=== PATIENT | female | born 1990 | race Native Hawaiian/Other Pacific Islander ===

== ENCOUNTER 2017-08-22 15:23 | Outpatient (CLI) | payer OTHER | END 2017-08-22 15:35 | disposition short-term general hospital (02) | LOC: AMB 15:23 | DX: F19.10 Other psychoactive substance abuse, uncomplicated (principal) | CPT/HCPCS: A0425; A0427 ==

== ENCOUNTER 2017-08-22 15:40 | Emergency (ER) | payer OTHER ==
[~2017-08-22] VITALS: Ht 175.3 cm; Wt 65.3 kg
[2017-08-22 16:13] LABS: PLATELET COUNT 348 K/uL (152-353)
[2017-08-22 17:12] LABS: POTASSIUM 2.7 mmol/L (3.6-5.2)
[2017-08-22 22:06] VITALS: BP 113/81; TEMP 98
== END 2017-08-22 22:15 | disposition home or self-care (01) ==
LOC: ED 15:40
DX: F19.10 Other psychoactive substance abuse, uncomplicated (principal)
CPT/HCPCS: 80048; 80307; 81000; 84443; 85027; 96360; 96361; 96374; 96376; 99284; J1200

== ENCOUNTER 2017-08-24 13:44 | Outpatient (CLI) | payer OTHER | END 2017-08-24 13:50 | disposition short-term general hospital (02) | LOC: AMB 13:44 | DX: G40.89 Other seizures (principal) | CPT/HCPCS: A0425; A0427 ==

== ENCOUNTER 2017-08-24 13:52 | Emergency (ER) | payer OTHER ==
[~2017-08-24] VITALS: Ht 175.3 cm; Wt 65.3 kg
[2017-08-24 14:26] LABS: PLATELET COUNT 288 K/uL (152-353)
[2017-08-24 14:33] LABS: POTASSIUM 4.2 mmol/L (3.6-5.2)
[2017-08-24 15:19] VITALS: BP 141/76; TEMP 98.3
== END 2017-08-24 15:22 | disposition home or self-care (01) ==
LOC: ED 13:52
DX: R56.9 Unspecified convulsions (principal)
CPT/HCPCS: 80053; 80307; 81000; 85027; 99283

== ENCOUNTER 2017-10-12 20:26 | Emergency (ER) | payer OTHER ==
[~2017-10-12] VITALS: Ht 165.1 cm; Wt 65.3 kg
[2017-10-12 21:24] LABS: PLATELET COUNT 690 K/uL (152-353)
[2017-10-12 21:27] LABS: POTASSIUM 4.3 mmol/L (3.6-5.2); SODIUM 137 mmol/L (136-145)
[2017-10-13 10:00] VITALS: TEMP 97.7
[2017-10-13 10:28] VITALS: BP 115/81
== END 2017-10-13 11:25 | disposition short-term general hospital (02) ==
LOC: ED 20:26
PROVIDERS: Specialist
PROC: 0BH17EZ Insertion of Endotracheal Airway into Trachea, Via Natural or Artificial Opening (ICD-10-PCS; principal; 2017-10-12)
PROC: 5A1935Z Respiratory Ventilation, Less than 24 Consecutive Hours (ICD-10-PCS; 2017-10-12)
PROC: 0T9B70Z Drainage of Bladder with Drainage Device, Via Natural or Artificial Opening (ICD-10-PCS; 2017-10-12)
DX: T43.621A Poisoning by amphetamines, accidental (unintentional), initial encounter (principal); R00.0 Tachycardia, unspecified; I45.81 Long QT syndrome
CPT/HCPCS: 36415; 80053; 80185; 80307; 81000; 82550; 82553; 83605; 83735; 84100; 84484; 84702; 85027; 93005; 96365; 96366; 96372; 96375; 96376; 99285; J0330; J1165; J2060; J2250; J3490

== ENCOUNTER → 2017-10-12 | Outpatient (CLI) | payer OTHER | END | disposition short-term general hospital (02) | LOC: AMB 20:02 | DX: T43.621A Poisoning by amphetamines, accidental (unintentional), initial encounter (principal); Y92.098 Other place in other non-institutional residence as the place of occurrence of the external cause | CPT/HCPCS: A0425; A0427 ==

== ENCOUNTER 2017-10-13 11:46 | Outpatient (CLI) | payer OTHER | END 2017-10-13 12:28 | disposition short-term general hospital (02) | LOC: AMB 11:46 | DX: T43.621A Poisoning by amphetamines, accidental (unintentional), initial encounter (principal); R00.0 Tachycardia, unspecified; I45.81 Long QT syndrome | CPT/HCPCS: A0425; A0427 ==

== ENCOUNTER 2018-08-27 18:38 | Outpatient (CLI) | payer OTHER | END 2018-08-27 18:49 | disposition short-term general hospital (02) | LOC: AMB 18:38 | DX: T43.621A Poisoning by amphetamines, accidental (unintentional), initial encounter (principal); Y92.018 Other place in single-family (private) house as the place of occurrence of the external cause | CPT/HCPCS: A0425; A0427 ==

== ENCOUNTER 2018-08-27 18:53 | Inpatient (IN) | payer OTHER ==
[~2018-08-27] VITALS: Ht 167.6 cm; Wt 63.5 kg
[2018-08-27 19:17] VITALS: BP 120/73; TEMP 100.8
[2018-08-27 19:55] LABS: PLATELET COUNT 421 K/uL (152-353)
[2018-08-27 20:00] LABS: SODIUM 144 mmol/L (136-145)
[2018-08-27 20:20] VITALS: BP 106/76
[2018-08-27 21:34] VITALS: BP 87/47
[2018-08-27 21:45] VITALS: BP 87/48
--- NOTE | 2018-08-27 22:10 | NUR ---
PT BROUGHT TO ICU FROM ER BY KIERSTEN MAHONEY RN AND REMI WHITLEY RN, PT RESTING QUIETLY WITH EYES CLOSED, IN POSITION, LEFT SIDE, MOVED PT OVER TO ICU BED, HOOKED UP TO MONITORS, PT BEGAN BUCKING HER BODY, AND SLINGING HER ARMS, SHE QUIETENED BACK DOWN, NO C/O OF CHEST PAIN, PT OPENED EYES WHEN NAME WAS CALLED, PUPILS 6-7MM, DOES NOT VERBALLY RESPOND, LUNG SOUNDS CLEAR, RESPIRATIONS EVEN AND NON-LABORED, NO SKIN PROBLEMS FOUND, PT WEARING T-SHIRT AND SHORTS, DENTAL CARIES (BAD BREATH) NOTED. WILL CONTINUE TO MONITOR
[2018-08-27 22:47] VITALS: BP 104/72; TEMP 97.7; Ht 167.6 cm; Wt 63.5 kg
[2018-08-27 23:00] VITALS: BP 114/74
[2018-08-27 23:57] LABS: PARTIAL THROMBOPLASTIN TIME 25.1 SECONDS (24.5-33.6)
[2018-08-28] VITALS (20 sets, daily range): BP systolic 85–108; BP diastolic 42–73; TEMP 98–98.4
--- NOTE | 2018-08-28 00:15 | NUR ---
PT SAT UP IN BED, VERY FIDGETY, UNABLE TO REST, GAVE ATIVAN 2MG IV PUSH, WILL CONTINUE TO MONITOR
--- NOTE | 2018-08-28 00:30 | NUR ---
PT RESTING QUIETLY WITH EYES CLOSED, NAD NOTED, WILL CONTINUE TO MONITOR
--- NOTE | 2018-08-28 03:20 | NUR ---
PT STARTING TO WAKE UP, ASKED FOR SOMETHING TO DRINK, EXPLAINED TO PATIENT THAT SHE COULDN'T HAVE ANYTHING BY MOUTH UNTIL SHE WOKE UP BETTER, PT TALKING AND ASKING QUESTIONS, PURCHASING ASSISTANT NOTICED PT'S BEDDING WET, IV TO LEFT FOREARM LEAKING AT THE HUB, MORNING LABS TO BE DRAWN, NEW IV SITE STARTED TO RT HAND X 2 STICKS, 22G, IVF INFUSING TO RT HAND WITHOUT DIFFICULTY, SINCE PT WAS SO COOPERATIVE, PURCHASING ASSISTANT CALLED RESPIRATORY TO DO EKG AND RADIOLOGY TO DO CXR. ALL WERE SUCCESSFUL, PT COOPERATED WELL, PT ALSO DRANK 240ML OF LIOR KEILA WITHOUT DIFFICULTY. @0400 NOW PATIENT IS RESTING QUIETLY WITH EYES CLOSED, NAD NOTED.
--- NOTE | 2018-08-28 06:06 | NUR ---
PT RESTING QUIETLY WITH EYES CLOSED, NAD NOTED, AWAKENS TO VERBAL OR TACTILE STIMULI, VERY RESTLESS, EASILY GOES BACK TO SLEEP, PT IS VERY ANXIOUS WHEN AWAKE, UNABLE TO BE STILL
--- NOTE | 2018-08-28 07:00 | NUR ---
REPORT RECEIVED FROM PHILLIP CASTILLO. CARE ASSUMED.
--- NOTE | 2018-08-28 07:15 | NUR ---
PT RESTING WITH EYES CLOSED. RR EVEN & UNLABORED. NAD NOTED. SHIFT ASSESSMENT COMPLETE. IV HEPLOCK TO LAC & RIGHT HAND PATENT, NO S/S OF INFILTRATION NOTED. NS INFUSING TO RIGHT HAND W/O DIFFICULTY. SR'S UP X2. BED LOW. WILL CONTINUE TO MONITOR.
--- NOTE | 2018-08-28 07:55 | NUR ---
DR. MACIAS IN TO ASSESS PT., DIET ORDER RECEIVED.
--- NOTE | 2018-08-28 08:00 | NUR ---
DIETARY CALL FOR A BREAKFAST TRAY FOR PT.
--- NOTE | 2018-08-28 08:08 | NUR ---
PT'S BPM IS 85/42. DR. MACIAS CALLED. NEW ORDERS RECEIVED.
--- NOTE | 2018-08-28 08:09 | NUR ---
NS RATE INCREASED TO WIDE OPEN (999 ML/HR) AT THIS TIME. WILL MONITOR BP.
--- NOTE | 2018-08-28 08:23 | NUR ---
PT AWAKE & SITTING UP AT THIS TIME EATING A CLEAR LIQUID BREAKFAST. NAD NOTED. WILL MONITOR.
--- NOTE | 2018-08-28 08:45 | NUR ---
PT IS ON HER PERIOD. PT HAS BLOOD ALL OVER SHEETS. PT TO BEDSIDE COMMODE TO VOID & BATH. LINENS CHANGED. MOUTH CARE PROVIDED. PT TOLERATED WELL. WILL CONTINUE TO MONITOR.
--- NOTE | 2018-08-28 09:19 | NUR ---
PT SITTING UP EATING JELLO. WILL CONTINUE TO MONITOR.
--- NOTE | 2018-08-28 10:05 | NUR ---
PT RESTING WITH EYES CLOSED. RR EVEN & UNLABORED. NAD NOTED. WILL CONTINUE TO MONITOR. BP IS 93/53. WILL CONTINUE NS @ 125 ML/HR. NS BOLUS OF 1500 ML'S COMPLETE.
--- NOTE | 2018-08-28 11:05 | NUR ---
PT SLEEPING AT THIS TIME. RR EVEN & UNLABORED. NAD NOTED. PT AWAKENS WITH CALLING HER NAME & A TOUCH. WILL CONTINUE TO MONITOR.
--- NOTE | 2018-08-28 11:55 | NUR ---
BLOOD DRAWN FOR LABS X 2 ATTEMPTS. PT AROUSES FOR BLOOD DRAW BUT EASILY FALLS BACK TO SLEEP. WILL CONTINUE TO MONITOR.
--- NOTE | 2018-08-28 12:33 | NUR ---
PT SITTING UP EATING LUNCH. NAD NOTED.
[2018-08-28 12:40] LABS: POTASSIUM 3.8 mmol/L (3.6-5.2); SODIUM 138 mmol/L (136-145)
[2018-08-28 12:41] LABS: PLATELET COUNT 254 K/uL (152-353)
--- NOTE | 2018-08-28 12:54 | NUR ---
LAB RESULTS ARE BACK & ON THE CHART. DR. MACIAS CALLED IN THE ER TO REVIEW REULTS.
--- NOTE | 2018-08-28 12:55 | NUR ---
PT ATE ALL HER LUNCH & TOLERATED WELL. WILL CONTINUE TO MONITOR.
--- NOTE | 2018-08-28 13:30 | NUR ---
PT RESTING WITH EYES CLOSED. NAD NOTED. WILL CONTINUE TO MONITOR.
--- NOTE | 2018-08-28 14:15 | NUR ---
PT HAS VISITORS X 2 AT BEDSIDE.
--- NOTE | 2018-08-28 14:38 | NUR ---
PT HAS ANOTHER VISITOR AT BEDSIDE.
--- NOTE | 2018-08-28 15:08 | NUR ---
PT SITTING UP VISITING WITH SO. RR EVEN & UNLABORED. NAD NOTED. PT EATING A SNACK. WILL CONTINUE TO MONITOR.
--- NOTE | 2018-08-28 15:55 | NUR ---
DR. MACIAS IN TO SEE PT. NEW STAT ORDER RECEIVED.
--- NOTE | 2018-08-28 16:10 | NUR ---
BLOOD DRAWN FOR STAT [facility] & SENT TO LAB
--- NOTE | 2018-08-28 16:14 | NUR ---
PT SITTING UP AT THIS TIME EATING PUDDING. NAD NOTED. NO COMPLAINTS AT PRESENT.
--- NOTE | 2018-08-28 16:38 | NUR ---
CALLED [facility] RESULTS TO DR. MACIAS.
--- NOTE | 2018-08-28 16:58 | NUR ---
DR. MACIAS AT BEDSIDE TO ASSESS PT & REVIEW LABS.
--- NOTE | 2018-08-28 17:05 | NUR ---
CALLED PT'S RIDE TO COME PICK HER UP.
--- NOTE | 2018-08-28 17:45 | NUR ---
PT'S RIDE IS HERE. DISCONTINUED IV'S TO RIGHT HAND & LFA WITH CATH TIPS INTACT. DRESSINGS APPLIED.
--- NOTE | 2018-08-28 18:00 | NUR ---
PT DISCHARGED HOME WITH FAMILY. RR EVEN & UNLABORED. NAD NOTED. PT A&O X3. PT TO HOSPITAL EXIT WITH STAFF. DISCHARGE INSTRUCTION GIVEN TO PT WITH PT VERBALIZING UNDERSTANDING. PT INSTRUCTED TO FOLLOW UP WITH CARDIOLOGY WITHIN THE WEEK (DR. EDMONDS OR WHAT EVER VIDEO GAME MAKER PT CHOOSES. PT VERBALIZES UNDERSTANDING.
== END 2018-08-28 17:55 | disposition home or self-care (01) | DRG 918 ==
LOC: ED 18:53 → ICU 21:00
PROVIDERS: Emergency Medicine; ADMIT Internal Medicine
PROC: 0T9B70Z Drainage of Bladder with Drainage Device, Via Natural or Artificial Opening (ICD-10-PCS; principal; 2018-08-27)
DX: T43.621A Poisoning by amphetamines, accidental (unintentional), initial encounter (principal); Y92.89 Other specified places as the place of occurrence of the external cause; R07.89 Other chest pain; I25.2 Old myocardial infarction
CPT/HCPCS: 51702; 80053; 80307; 81000; 81025; 82550; 82553; 83735; 84484; 85027; 85610; 85730; 93005; 96365; 96375; 96376; 99285; J1630; J1650; J2060

== ENCOUNTER 2018-10-27 15:08 | Emergency (ER) | payer OTHER ==
[~2018-10-27] VITALS: Ht 175.3 cm; Wt 61.2 kg
[2018-10-27 15:14] VITALS: TEMP 98
[2018-10-27 16:51] VITALS: BP 142/88
== END 2018-10-27 16:51 | disposition home or self-care (01) ==
LOC: ED 15:08
DX: K04.7 Periapical abscess without sinus (principal); K02.9 Dental caries, unspecified
CPT/HCPCS: 96372; 99283; J1885

== ENCOUNTER 2019-05-01 19:41 | Emergency (ER) | payer OTHER ==
[~2019-05-01] VITALS: Ht 175.3 cm; Wt 61.2 kg
[2019-05-01 21:00] LABS: PLATELET COUNT 160 K/uL (152-353)
[2019-05-01 21:16] LABS: POTASSIUM 3.4 mmol/L (3.6-5.2)
[2019-05-01 21:55] VITALS: BP 118/62; TEMP 99
== END 2019-05-01 21:55 | disposition home or self-care (01) ==
LOC: ED 19:41
PROVIDERS: Emergency Medicine
DX: J11.1 Influenza due to unidentified influenza virus with other respiratory manifestations (principal)
CPT/HCPCS: 36415; 80053; 85027; 87502; 87651; 99283

== ENCOUNTER 2021-12-11 14:04 | Emergency (ER) | payer OTHER ==
[~2021-12-11] VITALS: Ht 172.7 cm; Wt 60.8 kg
[2021-12-11 14:04] VITALS: BP 103/72; TEMP 98.8
== END 2021-12-11 17:26 | disposition home or self-care (01) ==
LOC: ED 14:04
DX: J06.9 Acute upper respiratory infection, unspecified (principal); U07.1 COVID-19; F17.210 Nicotine dependence, cigarettes, uncomplicated
CPT/HCPCS: 87502; 87635; 87651; 99283; U0003